=== PATIENT | female | born 1950 | race Caucasian/White ===

== ENCOUNTER 2019-09-14 13:36 | Emergency (ER) | payer MEDICARE ==
[~2019-09-14] VITALS: Ht 160 cm; Wt 61.2 kg
[2019-09-14] MEDS ORDERED: LEVO-T25 MCG PO (13:53)
[2019-09-14] MEDS ORDERED: HUMIRA PSO40 MG/0.8 SUBQ (13:54)
[2019-09-14 14:39] LABS: ABSOLUTE BASOPHILS 0.1 thou/uL (0.0-0.2); ABSOLUTE EOSINOPHILS 0.1 thou/uL (0.0-0.7); ABSOLUTE LYMPHOCYTES 1.8 thou/uL (0.8-5.3); ABSOLUTE MONOCYTES 0.8 thou/uL (0.0-1.2); ABSOLUTE NEUTROPHILS 4.5 thou/uL (1.6-8.1); BASOPHILS 1.3 %; EOSINOPHILS 1.8 %; HEMATOCRIT 36.7 % (37.0-47.0); HEMOGLOBIN 12.2 gm/dL (12.0-15.0); LYMPHOCYTES 24.7 %; MCH 27.9 pg (26.0-34.0); MCHC 33.1 g/dL (28.0-37.0); MCV 84.3 fL (80.0-100.0); MONOCYTES 11.5 %; MPV 7.6 fl. (7.2-11.1); NUCLEATED RBCS 0 /100WBC; PLATELET COUNT* 445 thou/uL (150-400); POLYS 60.7 %; RBC 4.36 mil/uL (4.20-5.00); RDW-CV 15.9 % (10.5-14.5); WBC 7.3 thou/uL (4.0-11.0)
[2019-09-14 14:59] LABS: APTT 27.5 Seconds (25.0-31.3); PROTIME 10.7 Seconds (9.20-11.50)
[2019-09-14 15:03] LABS: ALBUMIN 3.1 g/dL (3.4-5.0); CALCIUM 8.4 mg/dL (8.5-10.1); CREATININE 0.9 mg/dL (0.6-1.3); POTASSIUM 3.7 mmol/L (3.5-5.1); TOTAL BILIRUBIN 0.2 mg/dL (<0.1-1.0); TOTAL PROTEIN 8.4 g/dL (6.4-8.2)
--- NOTE | 2019-09-14 16:32 | EKG ---
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
[2019-09-14 18:43] VITALS: BP 160/66
== END 2019-09-14 18:44 | disposition home or self-care (01) ==
LOC: M.ERS 13:36
PROVIDERS: Personal Emergency Response Attendant
DX: R22.31 Localized swelling, mass and lump, right upper limb (principal); M19.90 Unspecified osteoarthritis, unspecified site; E03.9 Hypothyroidism, unspecified; Z90.710 Acquired absence of both cervix and uterus

== ENCOUNTER 2020-12-09 16:47 | Emergency (ER) | payer MEDICARE ==
[~2020-12-09] VITALS: Ht 162.6 cm; Wt 65.8 kg
[~2020-12-09 16:47] MED LIST: HUMIRA PSO40 MG/0.8 SUBQ; LEVO-T25 MCG PO
[2020-12-09 17:43] LABS: URINE BILIRUBIN NEGATIVE (Negative); URINE BLOOD TRACE (Negative); URINE CLARITY CLEAR; URINE COLOR YELLOW; URINE GLUCOSE-RANDOM NEGATIVE (Negative); URINE KETONES NEGATIVE (Negative); URINE LEUKOCYTES-REFLEX TRACE (Negative); URINE PROTEIN TRACE (Negative); URINE SPECIFIC GRAVITY 1.025 (1.005-1.030); URINE UROBILINOGEN 0.2 E.U./dl (0.2-1.0)
[2020-12-09 17:48] LABS: CASTS None Seen /LPF (None Seen); CRYSTALS None Seen /LPF (None Seen); SQUAMOUS 0-3 Few /LPF (0-3); URINE NITRITE-REFLEX POSITIVE (Negative); URINE RBC 0-2 Rare /HPF (0-2); URINE WBC-REFLEX 6-15 Few /HPF (0-5)
[2020-12-09 17:52] LABS: ABSOLUTE BASOPHILS 0.1 thou/uL (0.0-0.2); ABSOLUTE EOSINOPHILS 0.2 thou/uL (0.0-0.7); ABSOLUTE LYMPHOCYTES 2.2 thou/uL (0.8-5.3); ABSOLUTE MONOCYTES 0.6 thou/uL (0.0-1.2); ABSOLUTE NEUTROPHILS 3.4 thou/uL (1.6-8.1); BASOPHILS 0.8 %; EOSINOPHILS 2.4 %; HEMATOCRIT 35.6 % (37.0-47.0); HEMOGLOBIN 11.5 gm/dL (12.0-15.0); LYMPHOCYTES 34.7 %; MCHC 32.2 g/dL (28.0-37.0); MCV 83.7 fL (80.0-100.0); MONOCYTES 9.1 %; NUCLEATED RBCS 0 /100WBC; PLATELET COUNT* 336 thou/uL (150-400); RBC 4.25 mil/uL (4.20-5.00); WBC 6.4 thou/uL (4.0-11.0)
[2020-12-09 18:00] LABS: CALCIUM 8.7 mg/dL (8.5-10.1); CREATININE 0.8 mg/dL (0.6-1.3); POTASSIUM 3.2 mmol/L (3.5-5.1)
[2020-12-09 18:07] LABS: ALBUMIN 3.5 g/dL (3.4-5.0); TOTAL BILIRUBIN 0.2 mg/dL (<0.1-1.0); TOTAL PROTEIN 7.8 g/dL (6.4-8.2)
[2020-12-09] MEDS ORDERED: AUGMENTIN 875-1 EACH PO (18:57)
[2020-12-09] MEDS ORDERED: HYDROCODON-ACE1 EAC7 PO (19:16)
[2020-12-09 19:25] VITALS: BP 167/87
--- NOTE | 2020-12-10 15:25 | EKG ---
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1950 Requested By: eNo Wright Order Number: [id number] MD: Eleuterio Casiano Measurements Intervals [place] Rate: 86 P: 39 ND: 138 QRS: -3 QRSD: 77 T: 84 QT: 376 QTc: 450 Interpretive Statements Sinus rhythm Anteroseptal infarct, age indeterminate, possible Compared to ECG 09/14/2019 14:41:08 Myocardial infarct finding now present Electronically Signed On 12-10-2020 15:25:44 CDT by Eleuterio Casiano [email or web address] <ELECTRONICALLY SIGNED> By: Eleuterio Casiano MD, FAC 12/10/20 1525 1708 1708 Eleuterio Casiano MD, [facility] /EPI
== END 2020-12-09 19:26 | disposition home or self-care (01) ==
LOC: M.ERS 16:47
PROVIDERS: Emergency Medicine Emergency Medical Services
DX: N39.0 Urinary tract infection, site not specified (principal); Z20.822 Contact with and (suspected) exposure to COVID-19; R05 Cough; R19.7 Diarrhea, unspecified; R55 Syncope and collapse; M19.90 Unspecified osteoarthritis, unspecified site; E03.9 Hypothyroidism, unspecified; Z90.711 Acquired absence of uterus with remaining cervical stump; Z79.899 Other long term (current) drug therapy

== ENCOUNTER 2021-03-06 21:38 | Emergency (ER) | payer MEDICARE ==
[~2021-03-06] VITALS: Ht 157.5 cm; Wt 73.5 kg
[~2021-03-06 21:38] MED LIST changes: +AUGMENTIN 875-1 EACH PO; +HYDROCODON-ACE1 EAC7 PO
[2021-03-06 22:31] LABS: ABSOLUTE EOSINOPHILS 0.2 thou/uL (0.0-0.7); ABSOLUTE LYMPHOCYTES 2.1 thou/uL (0.8-5.3); ABSOLUTE MONOCYTES 0.6 thou/uL (0.0-1.2); ABSOLUTE NEUTROPHILS 2.8 thou/uL (1.6-8.1); BASOPHILS 0.8 %; EOSINOPHILS 2.9 %; HEMATOCRIT 31.3 % (37.0-47.0); HEMOGLOBIN 10.2 gm/dL (12.0-15.0); LYMPHOCYTES 36.6 %; MCH 27.6 pg (26.0-34.0); MCHC 32.7 g/dL (28.0-37.0); MCV 84.3 fL (80.0-100.0); MONOCYTES 10.7 %; MPV 7.6 fl. (7.2-11.1); NUCLEATED RBCS 0 /100WBC; PLATELET COUNT* 303 thou/uL (150-400); RBC 3.72 mil/uL (4.20-5.00); RDW-CV 14.2 % (10.5-14.5); WBC 5.8 thou/uL (4.0-11.0)
[2021-03-06 22:34] LABS: CALCIUM 8.3 mg/dL (8.5-10.1); CREATININE 0.7 mg/dL (0.6-1.3); POTASSIUM 3.2 mmol/L (3.5-5.1)
[2021-03-06 22:39] LABS: TOTAL BILIRUBIN 0.2 mg/dL (<0.1-1.0); TOTAL PROTEIN 7.1 g/dL (6.4-8.2)
[2021-03-06 23:42] LABS: APTT 27.6 Seconds (25.0-31.3); PROTIME 10.3 Seconds (9.20-11.50)
[2021-03-07] MEDS ORDERED: LISINOPRIL2.5 MG PO (01:03)
[2021-03-07 01:38] LABS: URINE BILIRUBIN NEGATIVE (Negative); URINE BLOOD NEGATIVE (Negative); URINE CLARITY CLEAR; URINE COLOR STRAW; URINE GLUCOSE-RANDOM NEGATIVE (Negative); URINE KETONES NEGATIVE (Negative); URINE LEUKOCYTES-REFLEX NEGATIVE (Negative); URINE NITRITE-REFLEX NEGATIVE (Negative); URINE PROTEIN NEGATIVE (Negative); URINE UROBILINOGEN 0.2 E.U./dl (0.2-1.0)
[2021-03-07 02:00] VITALS: BP 185/86
--- NOTE | 2021-03-07 09:38 | EKG ---
[place] [address] ELECTROCARDIOGRAM REPORT Name: ROSHAN ISIDROH MAGNOLIA Room: 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[employer]: [place] : 1950 Requested By: Desiree Miranda Order Number: [id number] MD: Rusty Acharya Measurements Intervals [place] Rate: 81 P: 63 [place]: 145 QRS: 1 QRSD: 85 T: 86 QT: 382 QTc: 444 Interpretive Statements Sinus rhythm Repol abnrm suggests ischemia, lateral leads Baseline wander in lead(s) I,III,aVR,aVL,aVF,V3,V4 Compared to ECG 12/09/2020 17:08:18 Early repolarization now present Myocardial infarct finding no longer present Electronically Signed On 03-07-2021 9:38:12 CUSTOMER SUPPORT ANALYST by Rusty Acharya [email or web address] <ELECTRONICALLY SIGNED> By: Rusty Acharya MD, [facility] 03/07/21 0938 46 46 Rusty Acharya MD, [facility] /EPI
== END 2021-03-07 02:00 | disposition home or self-care (01) ==
LOC: M.ERS 21:38
PROVIDERS: Personal Emergency Response Attendant
DX: I16.0 Hypertensive urgency (principal); M19.90 Unspecified osteoarthritis, unspecified site; E03.9 Hypothyroidism, unspecified; Z90.710 Acquired absence of both cervix and uterus

== ENCOUNTER 2021-04-03 10:08 | Emergency (ER) | payer MEDICARE ==
[~2021-04-03] VITALS: Ht 160 cm; Wt 65.8 kg
[~2021-04-03 10:08] MED LIST changes: +LISINOPRIL2.5 MG PO
[2021-04-03] MEDS ORDERED: OTEZLA30 MG PO (10:20)
[2021-04-03] MEDS ORDERED: PERCOCET PO (11:24)
[2021-04-03 11:45] VITALS: BP 96/47
== END 2021-04-03 11:46 | disposition home or self-care (01) ==
LOC: M.ERS 10:08
DX: M19.90 Unspecified osteoarthritis, unspecified site (principal); G89.29 Other chronic pain; Z90.710 Acquired absence of both cervix and uterus; Z79.899 Other long term (current) drug therapy